=== PATIENT | female | born 1955 | race American Indian/Alaskan Native ===

== ENCOUNTER 2020-11-15 17:02 | Emergency (ER) | payer MEDICARE ==
[2020-11-15] MEDS ORDERED: ACETAMINOPHEN 325 MG TAB ONE (20:17)
[2020-11-15] MEDS ORDERED: ACETAMINOPHEN 325 MG TAB PO ONE (20:24)
[2020-11-15 21:06] VITALS: BP 167/65
--- NOTE | 2020-11-15 21:10 | Emergency Department Report ---
ED General Adult HPI - General Chief complaint: Fall Stated complaint: RT HIP PAIN PUI?: No Time Seen by Provider: 11/15/20 21:06 Source: patient Mode of arrival: Ambulatory Limitations: No Limitations - History of Present Illness Initial comments: 64-year-old -[place] female presents to the emergency room complaining of soreness to both knees right hip and left side of neck status post fall. Patient states that she was at [facility] today and slipped on a liner roll changer and fell on her knees. She states that she feels that she did more damage trying to prevent falling and the actual fall. Patient denies hitting her head denies any loss of consciousness. Patient does report a history of arthritis diabetes hypertension hyperlipidemia COPD and anxiety. Patient states that she takes Loxitane for pain. Next dose of 15 mg at bedtime. -: This morning Location: left, right, lower extremity Severity scale (0 -10): 8 Quality: aching Improves with: medication (Tylenol) Associated Symptoms: denies: chest pain, diaphoresis, fever/chills, headaches, loss of appetite, nausea/vomiting, shortness of breath, weakness Treatments Prior to Arrival: NSAID (Meloxicam this morning) - Related Data Allergies Allergy/AdvReac Type Severity Reaction Status Date / Time No Known Allergies Allergy Verified 11/15/20 20:21 ED Review of Systems ROS: Stated complaint: RT HIP PAIN Other details as noted in HPI Comment: All other systems reviewed and negative ED Past Medical Hx - Past Medical History Previous Medical History?: Yes Hx Hypertension: Yes Hx Diabetes: Yes Hx Arthritis: Yes - Social History Smoking Status: Never Smoker Substance Use Type: None ED Physical Exam - General Limitations: No Limitations General appearance: alert, in no apparent distress - Head Head exam: Present: atraumatic, normocephalic - Eye Eye exam: Present: normal appearance - ENT ENT exam: Present: mucous membranes moist - Neck Neck exam: Present: tenderness (Left side tenderness no cervical tenderness), full ROM - Cardiovascular Cardiovascular Exam: Present: regular rate - GI/Abdominal GI/Abdominal exam: Absent: distended, tenderness ED Course Vital Signs 11/15/20 21:04 Temperature 98.2 F Pulse Rate 63 Respiratory 19 Rate Blood Pressure 167/65 [Right] O2 Sat by Pulse 100 Oximetry ED Medical Decision Making - Radiology Data Radiology results: report reviewed [facility] [address] [place] [address] XRay Report Signed Patient: MARLENI CARRIZALES MR#: [id number] 5 : 1955 Acct:[id number] Age/Sex: 64 / F ADM Date: 11/15/20 Loc: ED Attending Dr: Ordering Physician: NESSA JIMENES Date of Service: 11/15/20 Procedure(s): XR hips BILAT 2V w/pelvis Accession Number(s): [id number] cc: NESSA JIMENES Fluoro Time In Minutes: CLINICAL DATA: Follow-up of right hip pain TECHNICAL DATA: AP and lateral views of the hip were obtained. FINDINGS: The hips are well mineralized. Severe degenerative changes right hip characterized by loss of the articular space, sclerosis of articular surface and subchondral cyst formation.. No evidence of a dislocation. There is no evidence of fracture. There is no radiographic evidence of hip effusion. IMPRESSION: Degenerative changes right hip as noted Signer Name: Trent Eubanks MD Signed: 11/15/2020 9:40 PM Workstation Name: [id number] Transcribed By: ELE Dictated By: Trent Eubanks MD Electronically Authenticated By: Trent Eubanks MD Signed Date/Time: 11/15/202139 DD/ 39 TD/TT: Print Cancel - Medical Decision Making 64-year-old -[place] female presents to the emergency room complaining of soreness to both knees right hip and left side of neck status post fall. Patient states that she was at [facility] today and slipped on a liner roll changer and fell on her knees. She states that she feels that she did more damage trying to prevent falling and the actual fall. Patient denies hitting her head denies any loss of consciousness. Patient does report a history of arthritis diabetes hypertension hyperlipidemia COPD and anxiety. Patient states that she takes meloxicam for pain. Next dose of 15 mg at bedtime. Bilateral hip x-ray with pelvis shows severe arthritis of the hips. Patient be discharged to continue with her meloxicam. Follow-up with your primary care provider. Critical care attestation.: If time is entered above; I have spent that time in minutes in the direct care of this critically ill patient, excluding procedure time. ED Disposition Clinical Impression: Fall, Hip pain, chronic, Arthritis Disposition: DC-01 TO HOME OR SELFCARE Is pt being admited?: No Does the pt Need Aspirin: No Condition: Stable Instructions: Chronic Pain (ED), Osteoarthritis Additional Instructions: X-ray shows severe arthritis of her hips. Recommend to continue with your meloxicam. You can take Tylenol arthritis strength. Follow-up with your primary care provider. Referrals: Your, primary care provider [Other] - 3-5 Days
--- NOTE | 2020-11-15 21:45 | XRay Report ---
CLINICAL DATA: Follow-up of right hip pain TECHNICAL DATA: AP and lateral views of the hip were obtained. FINDINGS: The hips are well mineralized. Severe degenerative changes right hip characterized by loss of the art icular space, sclerosis of articular surface and subchondral cyst formation.. No evidence of a disloc ation. There is no evidence of fracture. There is no radiographic evidence of hip effusion. IMPRESSION: Degenerative changes right hip as noted Signer Name: Trent Eubanks MD Signed: 11/15/2020 9:40 PM Workstation Name: [id number]
== END 2020-11-15 21:58 | disposition home or self-care (01) ==
LOC: EDSEX → ED 17:02
DX: M25.551 Pain in right hip (principal); G89.29 Other chronic pain; M19.91 Primary osteoarthritis, unspecified site; I10 Essential (primary) hypertension; E11.9 Type 2 diabetes mellitus without complications; W01.0XXA Fall on same level from slipping, tripping and stumbling without subsequent striking against object, initial encounter; Y93.89 Activity, other specified; Y92.89 Other specified places as the place of occurrence of the external cause; Y99.8 Other external cause status
CPT/HCPCS: 73521